=== PATIENT | female | born 1950 | race Hispanic/Latino ===

== ENCOUNTER 2017-04-12 19:34 | Emergency (ER) | payer OTHER, MEDICARE ==
[~2017-04-12 19:34] MED LIST: IBUP-2076 PO
[2017-04-12] MEDS ORDERED: ASPIRIN 325 MG TABLET ONE (21:13)
[2017-04-12 21:21] LABS: BASOPHILS % (AUTO) 0.6 % (0.0-5.0); EOSINOPHILS % (AUTO) 1.2 % (0.0-8.0); LYMPHOCYTES % (AUTO) 17.4 % (21.0-51.0); MEAN CORPUSCULAR HGB CONC 33.5 g/dL (32.0-36.0); MEAN CORPUSCULAR VOLUME 83.6 fL (79-99); MONOCYTES % (AUTO) 7.1 % (3.0-13.0); NEUTROPHILS % (AUTO) 73.7 % (40.0-77.0); PLATELET COUNT (AUTO) 265 K/uL (130-400); RED BLOOD CELL COUNT(AUTO) 4.31 MIL/uL (4.00-5.50); RED CELL DISTRIBUTION WIDTH 13.5 % (11.0-15.5); WHITE BLOOD COUNT (AUTO) 7.1 K/uL (4.8-10.8)
[2017-04-12 21:44] LABS: CREATININE 0.5 mg/dL (0.5-1.5); POTASSIUM 3.7 mmol/L (3.5-5.1)
[2017-04-12 22:01] LABS: ALBUMIN 3.3 g/dL (3.5-5.0); BILIRUBIN,TOTAL 0.2 mg/dL (0.2-1.0); CREATINE KINASE MB 0.5 ng/mL (0.5-3.6); TOTAL PROTEIN, SERUM 6.4 g/dL (6.0-8.3)
[2017-04-12] MEDS ORDERED: GUAIFENESIN-DM 200/20 MG 10 ML ONE (22:56)
== END 2017-04-12 23:06 | disposition home or self-care (01) ==
LOC: EDH 19:34
DX: J20.9 Acute bronchitis, unspecified (principal); I10 Essential (primary) hypertension; Z88.6 Allergy status to analgesic agent; Z88.0 Allergy status to penicillin; Z90.49 Acquired absence of other specified parts of digestive tract
CPT/HCPCS: 36415; 71045; 80053; 82550; 82553; 84484; 85025; 87804; 93005

== ENCOUNTER → 2018-09-22 | Outpatient (CLI) | payer OTHER, MEDICARE | END | disposition home or self-care (01) | LOC: OIH 10:34 | PROVIDERS: ATTEND Family Medicine | DX: I10 Essential (primary) hypertension (principal) | CPT/HCPCS: 71046 ==

== ENCOUNTER → 2018-12-29 | Outpatient (CLI) | payer OTHER, MEDICARE | END | disposition home or self-care (01) | LOC: RAH 11:02 | PROVIDERS: ATTEND Family Medicine | DX: I70.209 Unspecified atherosclerosis of native arteries of extremities, unspecified extremity (principal) | CPT/HCPCS: 93925 ==

== ENCOUNTER → 2019-01-23 | Outpatient (CLI) | payer OTHER, MEDICARE | END | disposition home or self-care (01) | LOC: OIH 11:20 | PROVIDERS: ATTEND Family Medicine | DX: M11.262 Other chondrocalcinosis, left knee (principal) | CPT/HCPCS: 73562 ==

== ENCOUNTER 2019-06-04 08:07 | Emergency (ER) | payer OTHER, MEDICARE ==
[2019-06-04] MEDS ORDERED: CEFTRIAXONE SODIUM 2 GM VIAL ONE (08:33)
[2019-06-04] MEDS ORDERED: ONDANSETRON HCL 4 MG/2 ML VIAL ONE (08:33)
[2019-06-04] MEDS ORDERED: ACETAMINOPHEN EXTRA STRENGTH 500 MG TABLET ONE (08:33)
[2019-06-04] MEDS ORDERED: SODIUM CHLORIDE 0.9% 1000ML 2,000 ML IV ONE (08:34)
[2019-06-04 08:36] LABS: APPEARANCE,URINE Clear (CLEAR); BILIRUBIN,URINE Negative (NEGATIVE); COLOR,URINE Yellow (YELLOW); GLUCOSE, URINE (UA) Negative (NEGATIVE); KETONES,URINE Trace mg/dL (NEGATIVE); LEUKOCYTE ESTERASE ,URINE Negative (NEGATIVE); NITRATE,URINE Negative (NEGATIVE); OCCULT BLOOD,URINE Moderate (NEGATIVE); PROTEIN,URINE Negative (NEGATIVE); UROBILINOGEN,URINE 0.2 mg/dL (0.2-1.0)
[2019-06-04 08:46] LABS: BASOPHILS % (AUTO) 0.3 % (0.0-5.0); EOSINOPHILS % (AUTO) 0.5 % (0.0-8.0); LYMPHOCYTES % (AUTO) 12.6 % (21.0-51.0); MEAN CORPUSCULAR HEMOGLOBIN 27.4 pg (27.0-33.0); MEAN CORPUSCULAR HGB CONC 31.6 g/dL (32.0-36.0); MEAN CORPUSCULAR VOLUME 86.7 fL (79-99); MONOCYTES % (AUTO) 5.5 % (3.0-13.0); NEUTROPHILS % (AUTO) 80.8 % (40.0-77.0); PLATELET COUNT (AUTO) 232 K/uL (130-400); RED BLOOD CELL COUNT(AUTO) 4.96 MIL/uL (4.00-5.50); RED CELL DISTRIBUTION WIDTH 13.7 % (11.0-15.5); WHITE BLOOD COUNT (AUTO) 6.2 K/uL (4.8-10.8)
[2019-06-04 08:47] LABS: BACTERIA,URINE Rare /HPF (None Seen); RBC,URINE 0-1 /HPF (0-1); SQUAMOUS EPITHELIAL CELL,UR Rare /HPF (0-2); WBC,URINE 0-1 /HPF (0-1)
[2019-06-04 09:00] LABS: CARBON DIOXIDE 31 mmol/L (21-32); CHLORIDE 102 mmol/L (101-111); CREATININE 0.8 mg/dL (0.5-1.5); GLOMERULAR FILTR. RATE CALC 75 mL/min (>60); GLUCOSE,RANDOM 95 mg/dL (70-105); POTASSIUM 3.6 mmol/L (3.5-5.1); SODIUM SERUM 139 mmol/L (136-145); UREA NITROGEN, BLOOD 18 mg/dL (7-18)
[2019-06-04 09:06] LABS: INR 0.94 (0.85-1.15); PARTIAL THROMBOPLASTIN TIME 26.1 SEC (26.3-35.5); PROTHROMBIN TIME 9.9 SEC (9.6-11.6)
[2019-06-04 09:11] LABS: ALANINE AMINOTRANSFERASE 24 U/L (12-78); ALBUMIN 3.6 g/dL (3.5-5.0); ASPARTATE AMINOTRANSFERASE 29 U/L (10-37); BILIRUBIN,TOTAL 0.5 mg/dL (0.2-1.0); CREATINE KINASE, TOTAL 125 U/L (21-232); MYOGLOBIN 62 ng/mL (10-92); TOTAL PROTEIN, SERUM 6.9 g/dL (6.0-8.3); TROPONIN I < 0.04 ng/mL (0.00-0.06)
== END 2019-06-04 10:48 | disposition home or self-care (01) ==
LOC: EDH 08:07
DX: J06.9 Acute upper respiratory infection, unspecified (principal); I10 Essential (primary) hypertension; Z88.0 Allergy status to penicillin; Z88.6 Allergy status to analgesic agent; Z90.49 Acquired absence of other specified parts of digestive tract
CPT/HCPCS: 36415; 71045; 80053; 81001; 82550; 83605; 83874; 84145; 84484; 85025; 85610; 85730; 87040; 87088; 87804 ×2; 93005; 96374; 96375; 99285; J0696; J2405; J7030

== ENCOUNTER 2019-06-07 12:34 | Observation (INO) | payer OTHER, MEDICARE ==
[~2019-06-07] VITALS: Ht 152.4 cm; Wt 45.6 kg
[2019-06-07 13:58] LABS: BASOPHILS % (AUTO) 0.2 % (0.0-5.0); EOSINOPHILS % (AUTO) 0.5 % (0.0-8.0); HEMATOCRIT 37.3 % (36-48); LYMPHOCYTES % (AUTO) 24.9 % (21.0-51.0); MEAN CORPUSCULAR HEMOGLOBIN 27.6 pg (27.0-33.0); MEAN CORPUSCULAR HGB CONC 31.6 g/dL (32.0-36.0); MEAN CORPUSCULAR VOLUME 87.1 fL (79-99); MONOCYTES % (AUTO) 5.7 % (3.0-13.0); NEUTROPHILS % (AUTO) 68.5 % (40.0-77.0); PLATELET COUNT (AUTO) 225 K/uL (130-400); RED BLOOD CELL COUNT(AUTO) 4.28 MIL/uL (4.00-5.50); RED CELL DISTRIBUTION WIDTH 13.3 % (11.0-15.5); WHITE BLOOD COUNT (AUTO) 4.2 K/uL (4.8-10.8)
[2019-06-07] MEDS ORDERED: ONDANSETRON HCL 4 MG/2 ML VIAL ONE (13:58)
[2019-06-07] MEDS ORDERED: KETOROLAC TROMETHAMINE 15MG/ML ONE (13:59)
[2019-06-07] MEDS ORDERED: ASPIRIN 325 MG TABLET ONE ×2 (13:59→15:09)
[2019-06-07 14:02] LABS: CREATININE 0.6 mg/dL (0.5-1.5); POTASSIUM 3.1 mmol/L (3.5-5.1)
[2019-06-07 14:06] LABS: INR 0.89 (0.85-1.15); PARTIAL THROMBOPLASTIN TIME 24.1 SEC (26.3-35.5); PROTHROMBIN TIME 9.4 SEC (9.6-11.6)
[2019-06-07 14:07] LABS: ALBUMIN 2.9 g/dL (3.5-5.0); BILIRUBIN,DIRECT 0.1 mg/dL (0.0-0.3); BILIRUBIN,TOTAL 0.4 mg/dL (0.2-1.0); TOTAL PROTEIN, SERUM 6.2 g/dL (6.0-8.3)
[2019-06-07] MEDS ORDERED: IPRATROPIUM/ALBUTEROL SULFATE 3 ML SOLUTION IH ONE (14:39)
[2019-06-07] MEDS ORDERED: NITROGLYCERIN 1GM/1 INCH PACKET TD ONE ×2 (15:09→22:51)
[2019-06-07] MEDS: NITROGLYCERIN 1GM/1 INCH PACKET TD SCH ×2 (16:00→23:22)
[2019-06-07] MEDS ORDERED: SODIUM CHLORIDE 0.9% 1000ML 1,000 ML IV SCH (16:15)
[2019-06-07] MEDS ORDERED: PANTOPRAZOLE SODIUM 40 MG TABLET.DR ONE (16:39)
[2019-06-07] MEDS ORDERED: METOPROLOL TARTRATE 50 MG TAB ONE (16:39)
[2019-06-07 20:06] LABS: TROPONIN I 0.5 ng/mL (0.00-0.06)
[2019-06-07] MEDS: METOPROLOL TARTRATE 50 MG TAB PO SCH (21:00)
[2019-06-07] MEDS ORDERED: SODIUM CHLORIDE 0.9% 1000ML 1,000 ML IV ONE (22:51)
[2019-06-08] VITALS (7 sets, daily range): BP systolic 111–151; BP diastolic 52–70
[2019-06-08 02:32] LABS: TROPONIN I 0.29 ng/mL (0.00-0.06)
[2019-06-08] MEDS ORDERED: POTASSIUM CHLORIDE 20MEQ/100ML 100 ML IV PRN (07:30)
[2019-06-08] MEDS ORDERED: POTASSIUM CHLORIDE 10% ELIXIR 20 MEQ/15 ML UDCUP PO PRN (07:30)
[2019-06-08] MEDS ORDERED: LIDOCAINE HCL-MPF 1% 2ML VIAL IJ PRN (07:30)
[2019-06-08] MEDS: PANTOPRAZOLE SODIUM 40 MG TABLET.DR PO SCH (08:35)
[2019-06-08] MEDS: POTASSIUM CHLORIDE 20 MEQ ERTAB PO PRN ×3 (08:35→21:39)
[2019-06-08] MEDS: METOPROLOL TARTRATE 50 MG TAB PO SCH ×2 (08:35→21:39)
[2019-06-08] MEDS: ASPIRIN 325 MG TABLET PO SCH (08:37)
[2019-06-08] MEDS: NITROGLYCERIN 1GM/1 INCH PACKET TD SCH ×3 (08:39→23:45)
[2019-06-08] MEDS ORDERED: REGADENOSON 0.4 MG/5 ML PF SYG IVP SCH (10:45)
--- NOTE | 2019-06-08 12:37 | NUR ---
DC PLAN VISITED WITH PATIENT. PATIENT LIVES ALONE. INDEPENDENT ABLE TO PERFORM ADL'S. PATIENT HAS NO SERVICES OR DME'S. FEELS SAFE TO RETURN HOME. Addendum: 06/08/19 at 1242 by RED VAZQUEZ RN CM Amended: Links added.
--- NOTE | 2019-06-08 16:16 | NUR ---
[id number] patient signed EPPS Letter, I faxed EPPS Letter to [phone] and placed in chart under consent tab
[2019-06-09 04:05] VITALS: BP 149/76
[2019-06-09 07:00] VITALS: BP 158/70
[2019-06-09] MEDS ORDERED: ACETAMINOPHEN 325 MG TAB PO PRN (07:30)
[2019-06-09] MEDS: PANTOPRAZOLE SODIUM 40 MG TABLET.DR PO SCH (07:55)
[2019-06-09] MEDS: METOPROLOL TARTRATE 50 MG TAB PO SCH (07:55)
[2019-06-09] MEDS: ASPIRIN 325 MG TABLET PO SCH (07:55)
[2019-06-09] MEDS: NITROGLYCERIN 1GM/1 INCH PACKET TD SCH (07:56)
[2019-06-09 11:00] VITALS: BP 133/70
--- NOTE | 2019-06-09 11:02 | NUR ---
DR. Ruth ALLEN IN ROOM SPEAKING WITH PT. RE:DISCHARGE DISPOSITION. QUESTIONS ANSWERED BY DR. ALLEN.
--- NOTE | 2019-06-09 14:15 | NUR ---
HL REMOVED, CATHETER INTACT. DISCHARGE INSTRUCTIONS GIVEN, VERBALIZED UNDERSTANDING.
== END 2019-06-09 14:50 | disposition home or self-care (01) ==
LOC: EDH 12:34 → EDHIP 15:40 → 2AH 23:31
PROVIDERS: ADMIT Family Medicine; ATTEND Family Medicine
DX: R07.89 Other chest pain (principal); R05 Cough; R11.0 Nausea; R68.83 Chills (without fever); I10 Essential (primary) hypertension; Z88.0 Allergy status to penicillin; Z88.6 Allergy status to analgesic agent
CPT/HCPCS: 36415 ×2; 70450; 71045; 78452; 80048; 80076; 82550 ×3; 83874 ×2; 84484 ×3; 85025; 85610; 85730; 93005 ×2; 93017; 94640; 99285; A9500 ×2; G0378 ×10; J1885; J2405; J2785; J7030; 96374

== ENCOUNTER → 2019-06-15 | Outpatient (CLI) | payer OTHER, MEDICARE | END | disposition home or self-care (01) | LOC: RAH 08:38 | PROVIDERS: ATTEND Family Medicine | DX: R10.13 Epigastric pain (principal); I20.9 Angina pectoris, unspecified; I70.0 Atherosclerosis of aorta | CPT/HCPCS: 76700 ==

== ENCOUNTER 2020-11-01 14:18 | Observation (INO) | payer OTHER, MEDICARE ==
[~2020-11-01] VITALS: Ht 152.4 cm; Wt 49.0 kg
[2020-11-01 14:19] VITALS: BP 184/75
[2020-11-01 15:43] LABS: HEMATOCRIT 43.8 % (36-48); MEAN CORPUSCULAR HEMOGLOBIN 27.5 pg (27.0-33.0); MEAN CORPUSCULAR HGB CONC 31.1 g/dL (32.0-36.0); MEAN CORPUSCULAR VOLUME 88.5 fL (79-99); PLATELET COUNT (AUTO) 247 K/uL (130-400); RED BLOOD CELL COUNT(AUTO) 4.95 MIL/uL (4.00-5.50); RED CELL DISTRIBUTION WIDTH 13.9 % (11.0-15.5); WHITE BLOOD COUNT (AUTO) 8.2 K/uL (4.8-10.8)
[2020-11-01 15:56] LABS: APPEARANCE,URINE Clear (CLEAR); BILIRUBIN,URINE Negative (NEGATIVE); COLOR,URINE Yellow (YELLOW); GLUCOSE, URINE (UA) Negative (NEGATIVE); KETONES,URINE Negative (NEGATIVE); LEUKOCYTE ESTERASE ,URINE Negative (NEGATIVE); NITRATE,URINE Negative (NEGATIVE); OCCULT BLOOD,URINE Moderate (NEGATIVE); PH,URINE 5.5 (5.0-8.0); PROTEIN,URINE Trace mg/dL (NEGATIVE); UROBILINOGEN,URINE 0.2 mg/dL (0.2-1.0)
[2020-11-01 16:20] LABS: BACTERIA,URINE Rare /HPF (None Seen); MUCUS,URINE Rare LPF (None Seen); SQUAMOUS EPITHELIAL CELL,UR Few /HPF (0-2); WBC,URINE 0-1 /HPF (0-1)
[2020-11-01] MEDS ORDERED: ACETAMINOPHEN 500 MG TABLET PO ONE ×2 (16:30→21:00)
[2020-11-01 16:33] LABS: CREATININE 0.6 mg/dL (0.5-1.5); POTASSIUM 4.2 mmol/L (3.5-5.1)
[2020-11-01 16:38] LABS: ALBUMIN 3.6 g/dL (3.5-5.0); BILIRUBIN,TOTAL 0.6 mg/dL (0.2-1.0); TOTAL PROTEIN, SERUM 7.4 g/dL (6.0-8.3)
[2020-11-01 17:01] LABS: BAND NEUTROPHILS % (MANUAL) 4 % (0-2); LYMPHOCYTES % (MANUAL) 12 % (22-44); MONOCYTES % (MANUAL) 6 % (2-9); REACTIVE LYMPHOCYTES 2 % (0-0); SEGMENTED NEUTROPHILS % 76 % (40-70)
[2020-11-01 17:02] LABS: MAN.DIFF COMMENT-IMPRESSION MANUAL DIFFERENTIAL
[2020-11-01] MEDS ORDERED: 0.9%NACL 1000ML 1,000 ML IV ONE (21:00)
[2020-11-01] MEDS ORDERED: SULFAMETHOX-TMP DS 800/160 TAB PO SCH (21:00)
[2020-11-01] MEDS ORDERED: CEFTRIAXONE 1G VIAL 1 GM in 0.9%NACL 100ML 100 ML IV ONE (21:00)
[2020-11-01 21:15] LABS: ABG BASE EXCESS 1.2 mmol/L (-2.0-3.0); ABG HCO3 25.6 mmol/L (21.0-28.0); ABG OXYGEN SATURATION 96.1 % (95.0-99.0); ABG PCO2 40 mmHg (32-45)
[2020-11-01 21:21] LABS: INR 0.94 (0.85-1.15); PROTHROMBIN TIME 10.3 SEC (9.6-11.6)
[2020-11-01 21:22] LABS: PARTIAL THROMBOPLASTIN TIME 25.6 SEC (26.3-35.5)
[2020-11-01] MEDS ORDERED: CEFTRIAXONE 1G VIAL IVP ONE (21:30)
[2020-11-01] MEDS ORDERED: AZITHROMYCIN 500MG+NS 250ML IV ONE (21:30)
[2020-11-01] MEDS ORDERED: 0.9% NACL 250ML 250 ML IV ONE (21:30)
[2020-11-01 23:39] VITALS: BP 146/64
[2020-11-02] VITALS (8 sets, daily range): BP systolic 118–170; BP diastolic 50–89
[2020-11-02] MEDS: IPRATROPIUM/ALBUTEROL SULFATE 3 ML SOLUTION IH SCH ×5 (01:42→22:28)
[2020-11-02] MEDS: SOLU-MEDROL 40MG VIAL IVP SCH ×3 (07:58→17:47)
[2020-11-02] MEDS: FAMOTIDINE 20MG TAB PO SCH (08:18)
[2020-11-02] MEDS: AZITHROMYCIN 250 MG TABLET PO SCH (08:41)
[2020-11-02 09:52] LABS: HEMATOCRIT 39.2 % (36-48); MEAN CORPUSCULAR HEMOGLOBIN 27.3 pg (27.0-33.0); MEAN CORPUSCULAR HGB CONC 31.1 g/dL (32.0-36.0); MEAN CORPUSCULAR VOLUME 87.7 fL (79-99); RED BLOOD CELL COUNT(AUTO) 4.47 MIL/uL (4.00-5.50); RED CELL DISTRIBUTION WIDTH 13.8 % (11.0-15.5); WHITE BLOOD COUNT (AUTO) 5.7 K/uL (4.8-10.8)
[2020-11-02 10:07] LABS: ALBUMIN 2.9 g/dL (3.5-5.0); BILIRUBIN,TOTAL 0.5 mg/dL (0.2-1.0); CREATININE 0.5 mg/dL (0.5-1.5); POTASSIUM 3.8 mmol/L (3.5-5.1); TOTAL PROTEIN, SERUM 6.3 g/dL (6.0-8.3)
[2020-11-02] MEDS ORDERED: POTASSIUM CHLORIDE 10% ELIXIR 20 MEQ/15 ML UDCUP PO PRN (11:30)
[2020-11-02] MEDS ORDERED: LIDOCAINE HCL-MPF 1% 2ML VIAL IV PRN (11:30)
[2020-11-02] MEDS ORDERED: POTASSIUM CHLORIDE 20MEQ/100ML 100 ML IV PRN (11:30)
[2020-11-02] MEDS ORDERED: KCL 20 MEQ ERTAB PO PRN (11:30)
[2020-11-02] MEDS ORDERED: ONDANSETRON 4MG INJ IVP PRN (11:30)
[2020-11-02] MEDS: LISINOPRIL 10 MG TABLET PO SCH (12:19)
[2020-11-02] MEDS ORDERED: CEFTRIAXONE 1G VIAL IVP SCH (21:00)
[2020-11-03 00:14] VITALS: BP 119/49
[2020-11-03] MEDS: SOLU-MEDROL 40MG VIAL IVP SCH (01:24)
[2020-11-03] MEDS: IPRATROPIUM/ALBUTEROL SULFATE 3 ML SOLUTION IH SCH ×4 (02:00→14:00)
[2020-11-03 03:30] VITALS: BP 131/56
[2020-11-03 06:07] LABS: CREATININE 0.7 mg/dL (0.5-1.5)
[2020-11-03 07:30] VITALS: BP 156/72
[2020-11-03] MEDS ORDERED: LEVO500T89 PO (08:33)
[2020-11-03] MEDS: AZITHROMYCIN 250 MG TABLET PO SCH (08:52)
[2020-11-03] MEDS: FAMOTIDINE 20MG TAB PO SCH (08:52)
[2020-11-03] MEDS: LISINOPRIL 10 MG TABLET PO SCH (08:57)
[2020-11-03 11:00] VITALS: BP 130/55
[2020-11-03] MEDS ORDERED: METH4TAB3 PO (13:05)
[2020-11-03] MEDS ORDERED: ACET237L PO (13:05)
== END 2020-11-03 16:40 | disposition home or self-care (01) ==
LOC: EDH 14:18 → EDHIP 22:05 → 3DH 11-02 07:56
PROVIDERS: ADMIT Internal Medicine Pulmonary Disease; ATTEND Internal Medicine Pulmonary Disease
DX: J20.9 Acute bronchitis, unspecified (principal); Z20.822 Contact with and (suspected) exposure to COVID-19; J18.9 Pneumonia, unspecified organism; J03.90 Acute tonsillitis, unspecified; J04.0 Acute laryngitis; E86.0 Dehydration; I10 Essential (primary) hypertension; E78.00 Pure hypercholesterolemia, unspecified; F41.9 Anxiety disorder, unspecified; E78.5 Hyperlipidemia, unspecified; Z86.73 Personal history of transient ischemic attack (TIA), and cerebral infarction without residual deficits; Z98.51 Tubal ligation status; Z90.49 Acquired absence of other specified parts of digestive tract; Z88.0 Allergy status to penicillin
CPT/HCPCS: 36415 ×3; 36600; 71045; 71250; 80048; 80053 ×2; 81001; 82803; 83036; 83605 ×2; 84484; 85025; 85027; 85610; 85730; 87040 ×2; 87088; 87635; 87804 ×2; 87880; 93005 ×2; 94640 ×8; 94664; 96361; 96374; 96375 ×2; 96376 ×2; 99285; C9803; G0378 ×40; J0456; J0696 ×2; J2920 ×4; J7030; 96365

== ENCOUNTER → 2021-07-23 | Outpatient (CLI) | payer OTHER, MEDICARE ==
[~2021-07-23] MED LIST changes: +ACET237L PO; +LEVO500T90 PO; +METH4TAB3 PO
== END | disposition home or self-care (01) ==
LOC: RAH 15:38
PROVIDERS: ATTEND Family Medicine
DX: Z12.31 Encounter for screening mammogram for malignant neoplasm of breast (principal)
CPT/HCPCS: 77067

== ENCOUNTER → 2021-10-19 | Outpatient (CLI) | payer OTHER, MEDICARE ==
[2021-10-19 09:18] LABS: BASOPHILS % (AUTO) 0.9 % (0.0-5.0); EOSINOPHILS % (AUTO) 2.4 % (0.0-8.0); HEMATOCRIT 42.6 % (36-48); LYMPHOCYTES % (AUTO) 25.1 % (21.0-51.0); MEAN CORPUSCULAR HEMOGLOBIN 27.3 pg (27.0-33.0); MEAN CORPUSCULAR HGB CONC 31.5 g/dL (32.0-36.0); MEAN CORPUSCULAR VOLUME 86.9 fL (79-99); MONOCYTES % (AUTO) 5.1 % (3.0-13.0); NEUTROPHILS % (AUTO) 66.3 % (40.0-77.0); PLATELET COUNT (AUTO) 245 K/uL (130-400); RED CELL DISTRIBUTION WIDTH 13.1 % (11.0-15.5); WHITE BLOOD COUNT (AUTO) 5.5 K/uL (4.8-10.8)
[2021-10-19 10:16] LABS: ALANINE AMINOTRANSFERASE 18 U/L (12-78); ALBUMIN 3.5 g/dL (3.5-5.0); ASPARTATE AMINOTRANSFERASE 21 U/L (10-37); CARBON DIOXIDE 30 mmol/L (21-32); CHLORIDE 107 mmol/L (101-111); CHOLESTEROL 214 mg/dL (<200); CREATININE 0.5 mg/dL (0.5-1.5); GLOMERULAR FILTR. RATE CALC 129 mL/min (>60); GLUCOSE,RANDOM 113 mg/dL (70-105); HDL CHOLESTEROL 47 mg/dL (35-85); LDL DIRECT 143 mg/dL (0-99); POTASSIUM 4.2 mmol/L (3.5-5.1); SODIUM SERUM 144 mmol/L (136-145); THYROID STIMULATING HORMONE 1.97 uIU/mL (0.36-3.74); TRIGLYCERIDES 118 mg/dL (30-200); UREA NITROGEN, BLOOD 19 mg/dL (7-18)
== END | disposition home or self-care (01) ==
LOC: LAB 08:49
PROVIDERS: ATTEND Family Medicine
DX: I10 Essential (primary) hypertension (principal); M06.4 Inflammatory polyarthropathy; R73.03 Prediabetes; A09 Infectious gastroenteritis and colitis, unspecified; Z79.899 Other long term (current) drug therapy
CPT/HCPCS: 36415; 80053; 80061; 82043; 84443; 85025

== ENCOUNTER → 2022-03-09 | Outpatient (CLI) | payer OTHER, MEDICARE ==
[~2022-03-09] MED LIST changes: +LEVO-70 PO; -LEVO500T90 PO
== END | disposition home or self-care (01) ==
LOC: RAH 08:23
PROVIDERS: ATTEND Family Medicine
DX: N64.4 Mastodynia (principal); R92.2 Inconclusive mammogram
CPT/HCPCS: 77066

== ENCOUNTER 2022-03-13 04:01 | Emergency (ER) | payer OTHER, MEDICARE ==
[~2022-03-13] VITALS: Ht 154.9 cm; Wt 47.6 kg
[2022-03-13] MEDS ORDERED: ACETAMINOPHEN 325 MG TAB PO ONE (08:00)
[2022-03-13 08:24] VITALS: BP 142/59
== END 2022-03-13 09:18 | disposition left against medical advice (07) ==
LOC: EDH 04:01
DX: M79.605 Pain in left leg (principal); M25.562 Pain in left knee; Z53.21 Procedure and treatment not carried out due to patient leaving prior to being seen by health care provider
CPT/HCPCS: 73562

== ENCOUNTER → 2022-04-01 | Outpatient (CLI) | payer OTHER, MEDICARE | END | disposition home or self-care (01) | LOC: RAH 09:45 | PROVIDERS: ATTEND Internal Medicine Cardiovascular Disease | DX: K57.30 Diverticulosis of large intestine without perforation or abscess without bleeding (principal); K40.90 Unilateral inguinal hernia, without obstruction or gangrene, not specified as recurrent; R10.0 Acute abdomen; Z90.49 Acquired absence of other specified parts of digestive tract | CPT/HCPCS: 74176 ==

== ENCOUNTER 2022-10-16 19:43 | Emergency (ER) | payer OTHER, MEDICARE ==
[~2022-10-16] VITALS: Ht 160 cm; Wt 63.5 kg
[2022-10-16 20:48] LABS: BASOPHILS % (AUTO) 0.9 % (0.0-5.0); EOSINOPHILS % (AUTO) 2.6 % (0.0-8.0); HEMATOCRIT 38.2 % (36-48); LYMPHOCYTES % (AUTO) 21.1 % (21.0-51.0); MEAN CORPUSCULAR HEMOGLOBIN 27.2 pg (27.0-33.0); MEAN CORPUSCULAR HGB CONC 31.4 g/dL (32.0-36.0); MEAN CORPUSCULAR VOLUME 86.6 fL (79-99); MONOCYTES % (AUTO) 5.3 % (3.0-13.0); NEUTROPHILS % (AUTO) 69.8 % (40.0-77.0); PLATELET COUNT (AUTO) 268 K/uL (130-400); RED BLOOD CELL COUNT(AUTO) 4.41 MIL/uL (4.00-5.50); RED CELL DISTRIBUTION WIDTH 13.5 % (11.0-15.5); WHITE BLOOD COUNT (AUTO) 5.9 K/uL (4.8-10.8)
[2022-10-16 21:01] LABS: CREATININE 0.7 mg/dL (0.5-1.5); POTASSIUM 3.6 mmol/L (3.5-5.1)
[2022-10-16 21:02] LABS: INR 0.93 (0.85-1.15); PROTHROMBIN TIME 10.3 SEC (9.6-11.6)
[2022-10-16 21:05] LABS: ALBUMIN 3.4 g/dL (3.5-5.0); TOTAL PROTEIN, SERUM 6.8 g/dL (6.0-8.3)
[2022-10-16 21:09] LABS: B-TYPE NATRIURETIC PEPTIDE 79 pg/mL (0-100)
[2022-10-16] MEDS ORDERED: ASPIRIN 325MG TAB PO ONE (22:30)
[2022-10-16] MEDS ORDERED: NITROGLYCERIN 0.4 MG SL TAB SL PRN (22:30)
[2022-10-16] MEDS ORDERED: 0.9% NACL 500ML IV.SOLN 500 ML IV ONE (22:30)
[2022-10-16] MEDS ORDERED: IOHEXOL 350 MG/ML 100ML INFUS..BTL IV ONE (23:05)
[2022-10-16] MEDS ORDERED: ONDA4TAB10 PO (23:59)
[2022-10-17 00:27] VITALS: BP 132/64
== END 2022-10-17 00:31 | disposition home or self-care (01) ==
LOC: EDH 19:43
DX: R07.89 Other chest pain (principal); E86.0 Dehydration; R11.0 Nausea; F41.9 Anxiety disorder, unspecified; E11.9 Type 2 diabetes mellitus without complications; I10 Essential (primary) hypertension; I25.10 Atherosclerotic heart disease of native coronary artery without angina pectoris; Z79.52 Long term (current) use of systemic steroids; Z88.0 Allergy status to penicillin; Z88.5 Allergy status to narcotic agent
CPT/HCPCS: 99285; 71270; 71045; 84484 ×2; 80053; 83880; 85025; 85378; 85610; 85730; 36415; 93005; J7040; Q9967

== ENCOUNTER 2023-03-03 03:20 | Observation (INO) | payer OTHER, MEDICARE ==
[~2023-03-03] VITALS: Ht 157.5 cm; Wt 49.8 kg
[~2023-03-03 03:20] MED LIST changes: +ONDA4TAB10 PO
[2023-03-03 03:42] LABS: RAPID GROUP A STREP negative (NEGATIVE)
[2023-03-03 03:52] LABS: INFLUENZA TYPE A Negative For Type A (NEGATIVE); INFLUENZA TYPE B Negative For Type B (NEGATIVE)
[2023-03-03 04:00] LABS: SARS-CoV-2, RNA, NAAT NEGATIVE SARS CoV-2 (NEGATIVE)
[2023-03-03] MEDS ORDERED: DIPHENOXYLATE HCL/ATROPINE 2.5/0.025 MG TAB PO ONE (04:00)
[2023-03-03] MEDS ORDERED: ONDANSETRON ODT 4MG TAB SL ONE (04:00)
[2023-03-03 04:12] LABS: BASOPHILS # (AUTO) 0.07 K/uL (0.00-0.20); BASOPHILS % (AUTO) 0.3 % (0.0-5.0); EOSINOPHILS # (AUTO) 0.08 K/uL (0.00-0.70); EOSINOPHILS % (AUTO) 0.3 % (0.0-8.0); HEMATOCRIT 43.6 % (36-48); IMMATURE GRANULOCYTE ABSOLUTE 0.23 K/uL (0-1); LYMPHOCYTES # (AUTO) 0.7 K/uL (1.0-4.8); LYMPHOCYTES % (AUTO) 2.9 % (21.0-51.0); MEAN CORPUSCULAR HEMOGLOBIN 27.3 pg (27.0-33.0); MEAN CORPUSCULAR HGB CONC 31.9 g/dL (32.0-36.0); MEAN CORPUSCULAR VOLUME 85.5 fL (79-99); MONOCYTES # (AUTO) 0.7 K/uL (0.1-1.0); MONOCYTES % (AUTO) 2.8 % (3.0-13.0); NEUTROPHILS # (AUTO) 21.9 K/uL (1.8-7.7); NEUTROPHILS % (AUTO) 92.7 % (40.0-77.0); PLATELET COUNT (AUTO) 307 K/uL (130-400); RED CELL DISTRIBUTION WIDTH 13.7 % (11.0-15.5); WHITE BLOOD COUNT (AUTO) 23.6 K/uL (4.8-10.8)
[2023-03-03 04:27] LABS: CREATININE 0.7 mg/dL (0.5-1.5); POTASSIUM 4.7 mmol/L (3.5-5.1)
[2023-03-03] MEDS ORDERED: 0.9%NACL 1000ML 2,500 ML IV ONE (04:30)
[2023-03-03 04:34] LABS: ALBUMIN 3.4 g/dL (3.5-5.0); BILIRUBIN,TOTAL 0.7 mg/dL (0.2-1.0); MAGNESIUM 1.9 mg/dL (1.80-2.40); TOTAL PROTEIN, SERUM 7.4 g/dL (6.0-8.3)
[2023-03-03 04:43] LABS: WBC MORPHOLOGY CONSISTENT W/DIFF
[2023-03-03] MEDS ORDERED: IOHEXOL 350 MG/ML 100ML INFUS..BTL IV ONE (04:43)
[2023-03-03] MEDS: HALOPERIDOL INJ 5 MG/ML VIAL IV SCH ×2 (05:14→05:15)
[2023-03-03 05:39] LABS: APPEARANCE,URINE CLEAR (CLEAR); BILIRUBIN,URINE NEGATIVE (NEGATIVE); COLOR,URINE LIGHT-YELLOW (YELLOW); GLUCOSE, URINE (UA) NEGATIVE (NEGATIVE); KETONES,URINE NEGATIVE (NEGATIVE); LEUKOCYTE ESTERASE ,URINE NEGATIVE Leu/uL (NEGATIVE); NITRATE,URINE NEGATIVE (NEGATIVE); OCCULT BLOOD,URINE SMALL (NEGATIVE); PROTEIN,URINE NEGATIVE (NEGATIVE); UROBILINOGEN,URINE 0.2 mg/dL (0.2-1.0)
[2023-03-03 05:43] LABS: ADD UA MICROSCOPIC YES
[2023-03-03 05:44] LABS: BACTERIA,URINE RARE /HPF (None Seen); MUCUS,URINE RARE LPF (None Seen); SQUAMOUS EPITHELIAL CELL,UR RARE /HPF (0-2)
[2023-03-03] MEDS ORDERED: HYDROMORPHONE 0.5 MG SYG (0.5MG/0.5ML) IVP ONE (06:30)
[2023-03-03 06:59] LABS: ABG BASE EXCESS -5.7 mmol/L (-2.0-3.0); ABG HCO3 19.5 mmol/L (21.0-28.0); ABG OXYGEN SATURATION 92.5 % (95.0-99.0); ABG PCO2 37 mmHg (32-45); ABG PH 7.336 (7.35-7.450); CARBON MONOXIDE 0.7; DEVICE COMMENT RR; HHb 7.4; PO2, ARTERIAL BG 70.9 mmHg (83.0-108.0); VENT MODE, BG RA (ROOM AIR)
[2023-03-03] MEDS ORDERED: LABETALOL 20MG SYG IV PRN (07:00)
[2023-03-03] MEDS ORDERED: PROMETHAZINE HCL 25 MG/ML 1ML AMPULE IM PRN (07:00)
[2023-03-03] MEDS ORDERED: CLONIDINE HCL 0.1 MG TABLET PO PRN (07:00)
[2023-03-03] MEDS ORDERED: ACETAMINOPHEN 325 MG TAB PO PRN (07:00)
[2023-03-03] MEDS ORDERED: TEMAZEPAM 15 MG CAPSULE PO PRN (07:00)
[2023-03-03] MEDS ORDERED: ACETAMINOPHEN 650 MG SUPPOSITORY RC PRN (07:00)
[2023-03-03] MEDS ORDERED: ONDANSETRON 4MG INJ IVP PRN (07:00)
[2023-03-03] MEDS ORDERED: HYDRALAZINE 20MG/ML VIAL IV PRN (07:00)
[2023-03-03] MEDS ORDERED: LACTULOSE 20 GM/30 ML UDCUP PO PRN (07:00)
[2023-03-03] MEDS ORDERED: DOCUSATE SODIUM 100 MG CAP PO PRN (07:00)
[2023-03-03] MEDS: INSULIN HUMULIN R 100 UNIT/ML 3ML SQ SCH ×5 (07:30→19:43)
[2023-03-03] MEDS: 0.9%NACL 1000ML 1,000 ML IV SCH ×2 (08:39→19:44)
[2023-03-03] MEDS: LEVOFLOXACIN 750 MG/D5W 150ML BAG IV SCH (08:39)
[2023-03-03] MEDS: ENOXAPARIN SODIUM 40 MG/0.4 ML SYRINGE SQ SCH (09:00)
[2023-03-03] MEDS ORDERED: LOSA50TA64 PO (09:27)
[2023-03-03 10:13] LABS: HEMOGLOBIN A1C 6.3 % (4.0-6.0)
[2023-03-03] MEDS ORDERED: 0.9%NACL 1000ML 1,000 ML IV ONE (11:00)
[2023-03-03 12:13] LABS: CREATININE 0.5 mg/dL (0.5-1.5); POTASSIUM 3.7 mmol/L (3.5-5.1)
[2023-03-03] MEDS: METRONIDAZOLE 500MG/100ML BAG 100 ML IVPB SCH ×2 (14:49→19:43)
[2023-03-03 17:35] LABS: BASOPHILS # (AUTO) 0.02 K/uL (0.00-0.20); BASOPHILS % (AUTO) 0.2 % (0.0-5.0); EOSINOPHILS # (AUTO) 0.03 K/uL (0.00-0.70); EOSINOPHILS % (AUTO) 0.3 % (0.0-8.0); HEMATOCRIT 34.6 % (36-48); IMMATURE GRANULOCYTE ABSOLUTE 0.04 K/uL (0-1); LYMPHOCYTES # (AUTO) 0.6 K/uL (1.0-4.8); LYMPHOCYTES % (AUTO) 5.8 % (21.0-51.0); MEAN CORPUSCULAR HEMOGLOBIN 26.7 pg (27.0-33.0); MEAN CORPUSCULAR HGB CONC 30.9 g/dL (32.0-36.0); MEAN CORPUSCULAR VOLUME 86.3 fL (79-99); MONOCYTES # (AUTO) 0.3 K/uL (0.1-1.0); MONOCYTES % (AUTO) 2.5 % (3.0-13.0); NEUTROPHILS # (AUTO) 8.9 K/uL (1.8-7.7); NEUTROPHILS % (AUTO) 90.8 % (40.0-77.0); PLATELET COUNT (AUTO) 221 K/uL (130-400); RED BLOOD CELL COUNT(AUTO) 4.01 MIL/uL (4.00-5.50); RED CELL DISTRIBUTION WIDTH 14.1 % (11.0-15.5); WHITE BLOOD COUNT (AUTO) 9.8 K/uL (4.8-10.8)
[2023-03-03 18:31] VITALS: BP 114/63; PULSE 87; RESP 16
[2023-03-03 19:00] VITALS: BP 109/60; PULSE 85; RESP 16
[2023-03-03 19:35] VITALS: O2SAT 98
[2023-03-03] MEDS: FAMOTIDINE 20MG VIAL IV SCH (19:43)
[2023-03-03 23:00] VITALS: BP 114/55; PULSE 79; RESP 18
[2023-03-04 04:00] VITALS: BP 119/59; PULSE 85; RESP 18
[2023-03-04] MEDS: METRONIDAZOLE 500MG/100ML BAG 100 ML IVPB SCH (04:31)
[2023-03-04 04:34] LABS: BASOPHILS # (AUTO) 0.01 K/uL (0.00-0.20); BASOPHILS % (AUTO) 0.2 % (0.0-5.0); EOSINOPHILS # (AUTO) 0.01 K/uL (0.00-0.70); EOSINOPHILS % (AUTO) 0.2 % (0.0-8.0); HEMATOCRIT 33.7 % (36-48); IMMATURE GRANULOCYTE ABSOLUTE 0.03 K/uL (0-1); LYMPHOCYTES # (AUTO) 0.8 K/uL (1.0-4.8); LYMPHOCYTES % (AUTO) 12.6 % (21.0-51.0); MEAN CORPUSCULAR HEMOGLOBIN 27.2 pg (27.0-33.0); MEAN CORPUSCULAR HGB CONC 31.2 g/dL (32.0-36.0); MEAN CORPUSCULAR VOLUME 87.3 fL (79-99); MONOCYTES # (AUTO) 0.3 K/uL (0.1-1.0); MONOCYTES % (AUTO) 4.1 % (3.0-13.0); NEUTROPHILS # (AUTO) 5.1 K/uL (1.8-7.7); NEUTROPHILS % (AUTO) 82.4 % (40.0-77.0); PLATELET COUNT (AUTO) 204 K/uL (130-400); RED BLOOD CELL COUNT(AUTO) 3.86 MIL/uL (4.00-5.50); RED CELL DISTRIBUTION WIDTH 14.1 % (11.0-15.5); WHITE BLOOD COUNT (AUTO) 6.2 K/uL (4.8-10.8)
[2023-03-04 04:50] LABS: ALBUMIN 2.2 g/dL (3.5-5.0); BILIRUBIN,TOTAL 0.4 mg/dL (0.2-1.0); CREATININE 0.6 mg/dL (0.5-1.5); MAGNESIUM 1.6 mg/dL (1.80-2.40); PHOSPHORUS 2.5 mg/dL (2.5-4.9); POTASSIUM 3.4 mmol/L (3.5-5.1)
[2023-03-04] MEDS: INSULIN HUMULIN R 100 UNIT/ML 3ML SQ SCH (04:50)
[2023-03-04] MEDS: LEVOFLOXACIN 750 MG/D5W 150ML BAG IV SCH (05:28)
[2023-03-04 07:46] VITALS: BP 117/55; PULSE 76; RESP 16
[2023-03-04] MEDS ORDERED: MAGNESIUM OXIDE 400 MG TABLET PO ONE (08:00)
[2023-03-04] MEDS ORDERED: KCL 20 MEQ ERTAB PO ONE (08:00)
[2023-03-04] MEDS ORDERED: LEVO-70 PO (08:46)
[2023-03-04] MEDS ORDERED: FAMO-136 PO (08:46)
[2023-03-04] MEDS ORDERED: METR-172 PO (08:46)
[2023-03-04] MEDS: ENOXAPARIN SODIUM 40 MG/0.4 ML SYRINGE SQ SCH (08:51)
[2023-03-04] MEDS: FAMOTIDINE 20MG VIAL IV SCH (08:53)
== END 2023-03-04 12:10 | disposition home or self-care (01) ==
LOC: EDH 03:20 → EDHIP 06:57 → INTOOBSV 06:57 → WSH 12:52 → EDHIP 13:09 → 4BH 18:10
PROVIDERS: ADMIT Internal Medicine Critical Care Medicine; ATTEND Internal Medicine Critical Care Medicine
DX: A41.9 Sepsis, unspecified organism (principal); Z20.822 Contact with and (suspected) exposure to COVID-19; K52.9 Noninfective gastroenteritis and colitis, unspecified; K55.059 Acute (reversible) ischemia of intestine, part and extent unspecified; E86.9 Volume depletion, unspecified; R73.9 Hyperglycemia, unspecified; I10 Essential (primary) hypertension; E87.20 Acidosis, unspecified; Z88.0 Allergy status to penicillin; G47.00 Insomnia, unspecified; Z79.899 Other long term (current) drug therapy
CPT/HCPCS: 83605 ×4; 82435; 82947; 84132; 84295; 85018; 82948 ×4; 96372; 96365; 96366 ×2; 96375; 96367; 99285; 83036; 83735 ×2; 84484; 80053 ×2; 82803; 83690; 85025 ×3; 87040 ×2; 87046; 87880; 87804 ×2; 87177; 87324; 81001; 36415 ×2; 87635; 71045; 74177; 36600; 96376; 84100; G0378 ×29; J1956 ×3; C9803; J3490 ×5; J1630 ×2; J1650; J1170; Q9967; 80048

== ENCOUNTER → 2024-11-14 | Outpatient (CLI) | payer OTHER, MEDICAID ==
[~2024-11-14] MED LIST changes: -ACET237L PO; +BIMA2.5D4 OS; +CEFU500T67 PO; +DOXY100T2 PO; +ESCI-8 PO; -IBUP-2076 PO; -LEVO-70 PO; -METH4TAB3 PO; +METR-172 PO; -ONDA4TAB10 PO; +PANT40TA54 PO; +TELM40TA8 PO; +TIZA-194 PO
--- NOTE | 2024-11-14 14:30 | HMCIMG ---
EXAM: CT Head Without Intravenous Contrast. CLINICAL HISTORY: Unspecified injury of head. TECHNIQUE: Axial computed tomography images of the head/brain without intravenous contrast. Dose reduction technique was used including one or more of the following: automated exposure control, adjustment of mA and kV according to patient size, and/or iterative reconstruction. CONTRAST: None. COMPARISON: CT head 06/07/2019. Similar to prior. FINDINGS: BRAIN: No acute intraparenchymal hemorrhage. No mass lesion. No CT evidence for acute territorial infarct. No midline shift or extra-axial collection. Mild atrophy and mild chronic ischemic changes. VENTRICLES: No hydrocephalus. ORBITS: The orbits are unremarkable. SINUSES AND MASTOIDS: The paranasal sinuses and mastoid air cells are clear. SOFT TISSUES: No significant facial or scalp soft tissue swelling evident. No radiopaque foreign body is seen. BONES: No acute skull fracture. IMPRESSION: 1. No acute intracranial abnormality. 2. Mild atrophy and mild chronic ischemic changes, similar to prior CT head from 07 June 2019. /[place]
== END | disposition home or self-care (01) ==
LOC: RAH 13:35
PROVIDERS: ATTEND Internal Medicine
DX: S09.90XA Unspecified injury of head, initial encounter (principal); I67.82 Cerebral ischemia; G31.9 Degenerative disease of nervous system, unspecified; X58.XXXA Exposure to other specified factors, initial encounter; Y93.89 Activity, other specified; Y92.89 Other specified places as the place of occurrence of the external cause; Y99.8 Other external cause status
CPT/HCPCS: 70450